=== PATIENT | female | born 1945 | race Caucasian/White ===

== ENCOUNTER 2020-05-07 08:26 | Emergency (ER) | payer MEDICARE, SELFPAY ==
[2020-05-07 08:57] VITALS: BP 151/83; PULSE 79; RESP 22; TEMP 36.8; O2SAT 98
--- NOTE | 2020-05-07 08:59 | ED_ITS ---
HPI - Female Genitourinary General Chief complaint: Urogenital-Female Stated complaint: right flank pain/gross hematuria x6 months Time Seen by Provider: 05/07/20 08:45 Source: patient Mode of arrival: Ambulatory Limitations: no limitations History of Present Illness HPI Narrative: This is a 74-year-old female comes emergency department with complaint of right flank pain that has been going on for 6 months. Patient has not had fevers or chills. She had some nausea she did not have any vomiting. Patient states pain is on the right side/flank area. It does not radiate to the front. She has had it for several months but worse over the last day or so. She has had an ultrasound at [facility] which showed a 7 mm stone on the right. She is unsure if there is any hydronephrosis. Patient states that today about 4:00 a.m. she noticed paxton blood in her urine. And that there were clots in her urine as well. She has had some constipation but is having hard bowel movements, she did not appreciate any blood or melena in her stool. She has rheumatoid arthritis, she takes a diuretic/hypertensive medication, she does not think she takes any blood thinners. Patient has had 2 back surgeries, hysterectomy. She had a myelogram recently to evaluate her back but she had complication and states that she is having significant pain and difficulty with ambulation and is being followed for this. Related Data Previous Rx's Medication Instructions Recorded cephalexin 500 mg PO TID 14 Days #42 cap 05/07/20 phenazopyridine [Pyridium] 100 mg PO TID PRN #7 tab 05/07/20 Allergies Allergy/AdvReac Type Severity Reaction Status Date / Time ibuprofen AdvReac Gastrointestinal Verified 05/07/20 09:50 Upset Review of Systems Review of Systems ROS Unobtainable: All systems reviewed & are unremarkable except as noted in HPI and below Exam Narrative Exam Narrative: GENERAL: Alert and oriented x three, well-nourished elderly appearing female in mild to moderate distress. HEENT: Head normocephalic, atraumatic, EOMI, pupils reactive, face symmetric, moist mucous membranes NECK: Supple, full range of motion CARDIOVASCULAR: Regular rate and rhythm without murmurs, rubs or gallops. RESPIRATORY: Breath sounds equal bilaterally, no wheezes rales or rhonchi. ABDOMEN: Soft, nontender. Normoactive bowel sounds all 4 quadrants. No gu arding or rebound, rigidity, no mass : Mild right CVA tenderness EXTREMITIES: Normal range of motion, no clubbing or edema. Neurovascularly intact NEUROLOGICAL: Cranial nerves II through XII grossly intact. Moving all extremities SKIN: Warm, dry, no petechiae, no rashes or lesions. Initial Vital Signs Initial Vital Signs: Vital Signs Temperature 98.2 F 05/07/20 08:57 Pulse Rate 79 05/07/20 08:57 Respiratory Rate 22 05/07/20 08:57 Blood Pressure 151/83 H 05/07/20 08:57 Pulse Oximetry 98 05/07/20 08:57 Course Orders Ordered: Discontinued Medications Sodium Chloride (Normal Saline 0.9%) 1,000 mls @ 150 mls/hr IV CONT MILADIS Sodium Chloride (Normal Saline 0.9%) 1,000 mls @ 1,000 mls/hr IV BOLUS ONE Stop: 05/07/20 10:25 Last Infusion: 05/07/20 10:39 Dose: 0 mls/hr Documented by: Admin: 05/07/20 09:48 Dose: 1,000 mls/hr Documented by: JUAREZ Ceftriaxone Sodium/Dextrose (Rocephin) 1 gm in 50 mls @ 100 mls/hr IV NOW ONE Stop: 05/07/20 10:13 Last Infusion: 05/07/20 10:39 Dose: 0 mls/hr Documented by: Admin: 05/07/20 09:53 Dose: 100 mls/hr Documented by: JUAREZ Phenazopyridine HCl (Phenazopyridine 100 Mg Tablet) 200 mg PO NOW ONE Stop: 05/07/20 09:26 Last Admin: 05/07/20 09:48 Dose: 200 mg Documented by: JUAREZ Potassium Chloride (Potassium Chloride 20 Meq/15 Ml Udc) 40 meq PO NOW ONE Stop: 05/07/20 09:27 Last Admin: 05/07/20 09:47 Dose: 40 meq Documented by: JUAREZ Potassium Chloride (Potassium Chloride 20 Meq Tab) 40 meq PO NOW ONE Stop: 05/07/20 10:10 Last Admin: 05/07/20 10:40 Dose: 40 meq Documented by: MARTA Vital Signs Vital signs: Vital Signs - 8 hr 05/07/20 11:07 12/07/20 11:09 05/07/20 11:33 Temperature 98.7 F Pulse Rate 76 74 65 Respiratory Rate 15 20 Blood Pressure 147/65 H 146/76 H Pulse Oximetry 93 93 96 MDM - Female Genitourinary Lab Data Attestation: I reviewed the patient's lab results. Result diagrams: 05/07/20 08:55 05/07/20 08:55 Labs: Lab Results 05/07/20 05/07/20 05/07/20 Range/Units 08:55 08:55 08:55 WBC 14.3 H (4.5-11.0) X10^3/uL RBC 4.87 (4.0-5.2) X10^6/uL Hgb 15.5 (12.0-16.0) g/dL Hct 46.2 H (36-46) % MCV 95.0 (80-100) fL MCH 31.8 (26-34) PG MCHC 33.5 (30-36) % RDW 13.6 (11.6-14.8) % Plt Count 317 (150-400) X10^3/uL Neut % (Auto) 76.1 H (50-75) % Lymph % (Auto) 17.2 L (25-40) % Perkins % (Auto) 4.7 (3-14) % Eos % (Auto) 1.3 L (2-4) % Baso % (Auto) 0.7 (0-2) % Neut # (Auto) 65866 H (0420-9040) /uL Lymph # (Auto) 2500 (6611-1564) /uL Perkins # (Auto) 700 (0-900) /uL Eos # (Auto) 200 (0-450) /uL Baso # (Auto) 100 (0-100) /uL Sodium 127 L (137-145) mmol/L Potassium 3.0 L (3.4-5.1) mmol/L Chloride 88 L (98-107) mmol/L Carbon Dioxide 37 H (22-32) mmol/L BUN 14 (7-17) mg/dL Creatinine 1.00 (0.52-1.04) mg/dL Estimated GFR 53.9 L (>60) mL/min BUN/Creatinine Ratio 14.0 (6-22) Glucose 89 (80-110) mg/dL Calcium 9.5 (8.4-10.2) mg/dL Total Bilirubin 0.9 (0.2-1.3) mg/dL AST 29 (14-36) IU/L ALT 27 (<35) IU/L Alkaline Phosphatase 68 (38-126) U/L Total Protein 7.2 (6.3-8.2) g/dL Albumin 4.2 (3.5-5.0) g/dL Globulin 3.0 (1.7-4.1) g/dL Albumin/Globulin Ratio 1.4 (1.0-2.8) Lipase 93 (23-300) U/L Procalcitonin < 0.05 (<0.5) ng/mL Urine Color Urine Appearance Urine pH (4.5-8.0) Ur Specific [place] (1.000-1.035) Urine Protein (Negative) Urine Glucose (UA) (Negative) g/dL Urine Ketones (NEGATIVE) Urine Occult Blood (Negative) Urine Nitrate (Negative) Urine Bilirubin (NEGATIVE) Urine Urobilinogen (0.2) E.U./dL Ur Leukocyte Esterase (NEGATIVE) Urine RBC (0-5/HPF) Urine WBC (0-5/HPF) Ur Squamous Epith Cells (0-5/HPF) Urine Bacteria (None) Ur Culture Indicated? 05/07/20 Range/Units 09:00 WBC (4.5-11.0) X10^3/uL RBC (4.0-5.2) X10^6/uL Hgb (12.0-16.0) g/dL Hct (36-46) % MCV (80-100) fL MCH (26-34) PG MCHC (30-36) % RDW (11.6-14.8) % Plt Count (150-400) X10^3/uL Neut % (Auto) (50-75) % Lymph % (Auto) (25-40) % Perkins % (Auto) (3-14) % Eos % (Auto) (2-4) % Baso % (Auto) (0-2) % Neut # (Auto) (4067-7374) /uL Lymph # (Auto) (0463-2558) /uL Perkins # (Auto) (0-900) /uL Eos # (Auto) (0-450) /uL Baso # (Auto) (0-100) /uL Sodium (137-145) mmol/L Potassium (3.4-5.1) mmol/L Chloride (98-107) mmol/L Carbon Dioxide (22-32) mmol/L BUN (7-17) mg/dL Creatinine (0.52-1.04) mg/dL Estimated GFR (>60) mL/min BUN/Creatinine Ratio (6-22) Glucose (80-110) mg/dL Calcium (8.4-10.2) mg/dL Total Bilirubin (0.2-1.3) mg/dL AST (14-36) IU/L ALT (<35) IU/L Alkaline Phosphatase (38-126) U/L Total Protein (6.3-8.2) g/dL Albumin (3.5-5.0) g/dL Globulin (1.7-4.1) g/dL Albumin/Globulin Ratio (1.0-2.8) Lipase (23-300) U/L Procalcitonin (<0.5) ng/mL Urine Color Red Urine Appearance Turbid Urine pH 7.5 (4.5-8.0) Ur Specific [place] 1.015 (1.000-1.035) Urine Protein 3+ H (Negative) Urine Glucose (UA) Negative (Negative) g/dL Urine Ketones Negative (NEGATIVE) Urine Occult Blood 3+ H (Negative) Urine Nitrate Negative (Negative) Urine Bilirubin Negative (NEGATIVE) Urine Urobilinogen Normal (0.2) E.U./dL Ur Leukocyte Esterase 3+ H (NEGATIVE) Urine RBC >100/hpf H (0-5/HPF) Urine WBC >100/hpf H (0-5/HPF) Ur Squamous Epith Cells 0-1 /hpf (0-5/HPF) Urine Bacteria Few (2-10) H (None) Ur Culture Indicated? Specimen cultured Imaging Data CT scan - abdomen/pelvis: Radiologist's Impression: [address] [id number] Scan ReportSigned Patient: Liseth Lynn GMR#: [id number]: 4Acct:[id number]/Sex: 74 / FDate of Service: 05/07/20Loc: EDAc cession Number: [id number] Procedure: CT kidney ureter bladder (KUB) Ordering Provider: Dee Dee Frank D.O. PROCEDURE: CT KIDNEY URETER BLADDER (KUB) INDICATIONS: right flank pain, hx kidney stone, gross hematuria TECHNIQUE: Noncontrast 5 mm thick sections acquired from the diaphragms to the symphysis. 5 mm thick coronal and sagittal reformats were then performed. For radiation dose reduction, the following was used: automated exposure control, adjustment of mA and/or kV according to patient size. COMPARISON: None. FINDINGS: Image quality: Excellent. Lung bases: Scarring/atelectasis in anterior medial aspect of lingular segment is seen. Heart size is enlarged, no pericardial effusion. Pacemaker leads are noted. Urinary system: Both kidneys are normal in size. No kidney stones. No hydronephrosis or perinephric fat stranding. Bilateral renal cortical cysts are seen measures up to 3.1 centimeter in size in posterior cortex of midpole right kidney and up to 3.7 centimeters in size in lower pole of left kidney. Bilateral extrarenal pelvises are also noted. Both ureters appear non-dilated throughout their expected courses. There is mild diffuse bladder wall thickening, no discrete bladder wall mass. No calcified bladder stones. Other solid organs: Liver is normal in size. Gallbladder is within normal limits. Pancreas is normal in contours. Spleen is normal in size. No adrenal nodules. Peritoneum and bowel: Unenhanced bowel loops demonstrate normal wall thickness and caliber. No free fluid or air. Appendix is visualized and is within normal limits. Mild fecal stasis in the colon is seen. Nodes and vessels: No retroperitoneal or mesenteric adenopathy by size criteria. Aorta and inferior vena cava are normal in caliber. Abdominal wall: No ventral hernias. Pelvis: No free pelvic fluid. No inguinal hernias or adenopathy. Bones: No suspicious bony lesions. Degenerative endplate changes throughout visualized lower thoracic spine and lumbar spine is seen. Grade 1 anterolisthesis of L4 on L5 is also noted. No vertebral body compression fractures. IMPRESSION: 1. No renal stone or ureteral stone. No hydronephrosis. Bilateral renal cysts as above. 2. Mild diffuse bladder wall thickening without discrete bladder wall mass or calcified bladder stones. Infectious inflammatory cystitis cannot be excluded. 3. No bowel obstruction. No abnormal bowel wall thickening. Normal appendix. Dictated by: Alverto Guerra M.D. on 05/07/2020 at 8:20 Approved by: Alverto Guerra M.D. on 05/07/2020 at 8:25 [facility] Narrative Medical decision making narrative: 74-year-old female who comes in with complaint of right flank pain and gross hematuria. Patient states flank pain started approximately 6 months ago, she states she has had a ultrasound which showed a 7 mm kidney stone and she tried to contact Dr. Turpin urologist but has been unsuccessful. Patient's labs show a leukocytosis with left shift, hyponatremia, hypokalemia with elevated CO2 and normal renal function. Normal LFTs, bilirubin and lipase with a negative procalcitonin. Urinalysis does show leukocyte esterase with greater than [address] imaging does not show any nephrolithiasis she does have mild thickening of the bladder wall consistent w ith possibly infection but discussed with patient that she may need cystoscopy as there are other causes besides infection if she continues to have hematuria. We discussed patient plans to have repeat labs checked for her potassium and sodium, she did have her potassium replaced orally here in the department which she tolerated. We also discussed she has bilateral renal cysts. Patient found some improvement with pyridium and was given a prescription. Discharge Plan Departure Patient Disposition: Home Clinical Impression: Hematuria, Pyelonephritis Instructions: DI for Kidney Infection Activity Restrictions/Additional Instructions: Follow-up with Dr. Turpin for re-evaluation and possible cystoscopy as you have thickening of your bladder wall, you also have bilateral kidney cysts which were noted on a your imaging today. Take antibiotics until they are completely gone. You also need to follow-up with your primary care physician in the next 24-48 hours for recheck of your sodium and potassium which are both low. Your potassium was replaced here in the department but if these continue to drop you would need to return. If you cannot get these checked as an outpatient return to the ER for recheck. Return to the ER for fevers, worsening abdominal flank pain, lightheadedness passing out, persistent vomiting, increasing for large amounts of bleeding, inability to urinate or other new or concerning symptoms. Prescriptions: New cephalexin 500 mg capsule 500 mg PO TID 14 Days Qty: 42 RF: 0 phenazopyridine [Pyridium] 100 mg tablet 100 mg PO TID PRN (Reason: pain) Qty: 7 RF: 0 Referrals: Jin Abdi MD [Primary Care Provider] -
--- NOTE | 2020-05-07 09:02 | DI.CT.S_ITS ---
PROCEDURE: CT KIDNEY URETER BLADDER (KUB) INDICATIONS: right flank pain, hx kidney stone, gross hematuria TECHNIQUE: Noncontrast 5 mm thick sections acquired from the diaphragms to the symphysis. 5 mm thick coronal and sagittal reformats were then performed. For radiation dose reduction, the following was used: automated exposure control, adjustment of mA and/or kV according to patient size. COMPARISON: None. FINDINGS: Image quality: Excellent. Lung bases: Scarring/atelectasis in anterior medial aspect of lingular segment is seen. Heart size is enlarged, no pericardial effusion. Pacemaker leads are noted. Urinary system: Both kidneys are normal in size. No kidney stones. No hydronephrosis or perinephric fat stranding. Bilateral renal cortical cysts are seen measures up to 3.1 centimeter in size in posterior cortex of midpole right kidney and up to 3.7 centimeters in size in lower pole of left kidney. Bilateral extrarenal pelvises are also noted. Both ureters appear non-dilated throughout their expected courses. There is mild diffuse bladder wall thickening, no discrete bladder wall mass. No calcified bladder stones. Other solid organs: Liver is normal in size. Gallbladder is within normal limits. Pancreas is normal in contours. Spleen is normal in size. No adrenal nodules. Peritoneum and bowel: Unenhanced bowel loops demonstrate normal wall thickness and caliber. No free fluid or air. Appendix is visualized and is within normal limits. Mild fecal stasis in the colon is seen. Nodes and vessels: No retroperitoneal or mesenteric adenopathy by size criteria. Aorta and inferior vena cava are normal in caliber. Abdominal wall: No ventral hernias. Pelvis: No free pelvic fluid. No inguinal hernias or adenopathy. Bones: No suspicious bony lesions. Degenerative endplate changes throughout visualized lower thoracic spine and lumbar spine is seen. Grade 1 anterolisthesis of L4 on L5 is also noted. No vertebral body compression fractures. IMPRESSION: 1. No renal stone or ureteral stone. No hydronephrosis. Bilateral renal cysts as above. 2. Mild diffuse bladder wall thickening without discrete bladder wall mass or calcified bladder stones. Infectious inflammatory cystitis cannot be excluded. 3. No bowel obstruction. No abnormal bowel wall thickening. Normal appendix. Dictated by: Alverto Guerra M.D. on 05/07/2020 at 8:20 Approved by: Alverto Guerra M.D. on 05/07/2020 at 8:25
[2020-05-07 09:07] LABS: Add Manual Diff / Slide Review NO; Basophils Absolute Auto 100 /uL (0-100); Basophils Percent Auto 0.7 % (0-2); Eosinophils Absolute Auto 200 /uL (0-450); Eosinophils Percent Auto 1.3 % (2-4); Hematocrit 46.2 % (36-46); Hemoglobin 15.5 g/dL (12.0-16.0); Lymphocytes Absolute Auto 2500 /uL (1100-4500); Lymphocytes Percent Auto 17.2 % (25-40); Mean Corpuscular HGB Conc 33.5 % (30-36); Mean Corpuscular Hemoglobin 31.8 PG (26-34); Monocytes Absolute Auto 700 /uL (0-900); Monocytes Percent Auto 4.7 % (3-14); Neutrophils Absolute Auto 10900 /uL (1500-7000); Neutrophils Percent Auto 76.1 % (50-75); Platelet Count 317 X10^3/uL (150-400); Red Blood Cell Count 4.87 X10^6/uL (4.0-5.2); Red Cell Distribution Width 13.6 % (11.6-14.8); White Blood Cell Count 14.3 X10^3/uL (4.5-11.0)
[2020-05-07 09:12] LABS: Alanine Aminotransferase 27 IU/L (<35); Albumin 4.2 g/dL (3.5-5.0); Albumin Globulin Ratio 1.4 (1.0-2.8); Alkaline Phosphatase 68 U/L (38-126); Aspartate Aminotransferase 29 IU/L (14-36); Bilirubin Total 0.9 mg/dL (0.2-1.3); Blood Urea Nitrogen 14 mg/dL (7-17); Calcium 9.5 mg/dL (8.4-10.2); Carbon Dioxide 37 mmol/L (22-32); Chloride 88 mmol/L (98-107); Estimated Glomerular Filt Rate 53.9 mL/min (>60); Glucose 89 mg/dL (80-110); HEMOLYSIS < 15 (0-50); Lipase 93 U/L (23-300); Sodium 127 mmol/L (137-145); Total Protein 7.2 g/dL (6.3-8.2)
[2020-05-07 09:28] LABS: Procalcitonin < 0.05 ng/mL (<0.5)
[2020-05-07 09:30] LABS: Appearance Urine UA TURBID; Color Urine UA RED; Leukocyte Esterase Urine UA 3+ (NEGATIVE); Occult Blood Urine UA 3+ (Negative); Protein Urine UA 3+ (Negative)
[2020-05-07 09:40] LABS: Bilirubin Urine UA Negative (NEGATIVE); Glucose Urine UA NEGATIVE (Negative); Ketones Urine UA NEGATIVE (NEGATIVE); Nitrite Urine UA NEGATIVE (Negative); Specific Gravity Urine UA 1.015 (1.000-1.035); Urobilinogen Urine UA Normal E.U./dL (0.2); pH Urine UA 7.5 (4.5-8.0)
[2020-05-07] MEDS: POTASSIUM CHLORIDE 20 MEQ/15 ML UDC 40 MEQ PO (09:47)
[2020-05-07 09:48] LABS: Bacteria Urine Few (2-10); Culture Indicated Urine Specimen Cultured; RBC Urine >100/HPF (0-5/HPF); Squamous Epithelial Cell Urine 0-1 /HPF (0-5/HPF); WBC Urine >100/HPF (0-5/HPF)
[2020-05-07] MEDS: PHENAZOPYRIDINE 100 MG TABLET 200 MG PO (09:48)
[2020-05-07] MEDS: SODIUM CHLORIDE 0.9% 1,000 ML 1000 ML IV (09:48)
[2020-05-07] MEDS: CEFTRIAXONE 1 GM/50 ML FROZ.PIGGY IV (09:53)
--- NOTE | 2020-05-07 10:09 | PC.NURSE ---
Pt states she will not take potassium as a drink because it tastes too bad and I will through up every where MD notified and po ordered.
[2020-05-07 10:31] VITALS: PULSE 66; RESP 16; O2SAT 97
[2020-05-07] MEDS: POTASSIUM CHLORIDE 20 MEQ TAB 40 MEQ PO (10:40)
[2020-05-07 11:07] VITALS: PULSE 76; O2SAT 93
[2020-05-07 11:09] VITALS: BP 147/65; PULSE 74; RESP 15; O2SAT 93
[2020-05-07 11:33] VITALS: BP 146/76; PULSE 65; RESP 20; TEMP 37.1; O2SAT 96
== END 2020-05-07 11:33 | disposition home or self-care (01) ==
PROVIDERS: Emergency Provider Emergency Medicine; PCP Internal Medicine
DX: N12 Tubulo-interstitial nephritis, not specified as acute or chronic (principal); R31.0 Gross hematuria; R11.0 Nausea; K59.00 Constipation, unspecified; Z87.442 Personal history of urinary calculi; E87.1 Hypo-osmolality and hyponatremia; E87.6 Hypokalemia; D72.829 Elevated white blood cell count, unspecified
CPT/HCPCS: 74176; 80053; 81001; 83690; 84145; 85025; 87077; 87086; 87186; 96365; 99283; 99284

== ENCOUNTER → 2020-05-09 12:38 | Outpatient (CLI) | payer MEDICARE, SELFPAY ==
--- NOTE | 2020-05-09 12:39 | DI.RAD.S_ITS ---
PROCEDURE: XR LUMBAR SPINE MIN 4V INDICATIONS: UPDATE IMAGING TECHNIQUE: 5 views of the lumbar spine were acquired. COMPARISON: [facility], CT, CT LUMBAR SPINE WITHOUT CONTRAST, 02/22/2020, 7:49. FINDINGS: Bones: There are 5 [id number] lumbar vertebral bodies. As before, there is anterior wedging at T12 and L1. Severe degenerative changes are redemonstrated at the thoracolumbar junction including intervertebral disc space narrowing, vacuum disc phenomenon, osteophytosis, and endplate sclerosis. No new compression deformities. There is grade 1 L4 on L5 anterolisthesis, unchanged from the study dated February 22, 2020. Soft tissues: Overlying bowel gas pattern is normal. No suspicious soft tissue calcifications. Oblique images: No pars defects. IMPRESSION: 1. Stable degenerative change, severe at the thoracolumbar junction. 2. L4-5 anterolisthesis without spondylolysis. Dictated by: Eleanor Pineda M.D. on 05/09/2020 at 14:25 Approved by: Eleanor Pineda M.D. on 05/09/2020 at 14:27
== END ==
PROVIDERS: PCP Internal Medicine; Referring Provider Physical Medicine & Rehabilitation; Visit Provider Physical Medicine & Rehabilitation
DX: M54.9 Dorsalgia, unspecified (principal); M47.815 Spondylosis without myelopathy or radiculopathy, thoracolumbar region; M43.16 Spondylolisthesis, lumbar region; M48.00 Spinal stenosis, site unspecified; G03.9 Meningitis, unspecified; Z95.0 Presence of cardiac pacemaker
CPT/HCPCS: 72110; 99214

== ENCOUNTER → 2020-05-15 08:39 | Outpatient (CLI) | payer MEDICARE, SELFPAY ==
--- NOTE | 2020-05-15 | DI.RAD.S_ITS ---
PROCEDURE: XR HIP W PEL IF DONE RT 2V INDICATIONS: Pain in right hip TECHNIQUE: AP pelvis with lateral view(s) of the right hip(s). COMPARISON: [facility], CT, CT KIDNEY URETER BLADDER (KUB), 05/07/2020, 9:03. FINDINGS: Bones: No fractures or dislocations. Mild joint space narrowing of the right hip. Moderate joint space narrowing of the left hip with acetabular roof sclerosis. Pelvic ring appears intact. No suspicious bony lesions. Soft tissues: The visualized bowel gas pattern is normal. No suspicious soft tissue calcifications. IMPRESSION: 1. Mild right hip DJD. 2. Moderate left hip DJD. Dictated by: Dennis Riggs M.D. on 05/15/2020 at 8:03 Approved by: Dennis Riggs M.D. on 05/15/2020 at 8:05
== END ==
PROVIDERS: PCP Internal Medicine; Referring Provider Internal Medicine; Visit Provider Internal Medicine
DX: M25.551 Pain in right hip (principal); M16.0 Bilateral primary osteoarthritis of hip
CPT/HCPCS: 73502

== ENCOUNTER → 2020-07-18 09:38 | Outpatient (CLI) | payer MEDICARE, SELFPAY ==
--- NOTE | 2020-07-18 | DI.CT.S_ITS ---
PROCEDURE: CT ABDOMEN PELVIS WO/W CON INDICATIONS: Personal history of other diseases of urinary system TECHNIQUE: Optional 5 mm thick noncontrast images acquired from the diaphragm to the symphysis pubis. After the administration of intravenous contrast, 5 mm thick images acquired from the diaphragm to the symphysis pubis after a 10-minute delay. 2 mm thick coronal and sagittal reformats were then performed of the kidneys and ureters. For radiation dose reduction, the following was used: automated exposure control, adjustment of mA and/or kV according to patient size. COMPARISON: [facility], CT, CT KIDNEY URETER BLADDER (KUB), 05/07/2020, 9:03. FINDINGS: Image quality: Excellent. Lung bases: Lung bases are clear. Heart size is normal. Pacemaker leads in the heart. Urinary system: Both kidneys are normal in size, without hydronephrosis or nephrolithiasis on pre-contrast images. There are cysts arising from each kidney. No perinephric fat stranding. There is normal bilateral renal enhancement. Renal calyces appear normal in morphology when filled with contrast. Opacified portions of both ureters demonstrate normal caliber. Bladder wall thickness is normal. There is a trace amount of air anteriorly in the urinary bladder of uncertain etiology. No calcified bladder stones. Other solid organs: Liver is normal in size and enhancement. Gallbladder is partially contracted . Biliary system is non dilated. Pancreas enhances normally. Spleen is normal in size and enhancement. No adrenal nodules. Peritoneum and bowel: Bowel loops demonstrate normal wall thickness and caliber. No free fluid or air. Normal appendix. Occasional colonic diverticula. Nodes and vessels: No retroperitoneal or mesenteric adenopathy by size criteria. Aorta and inferior vena cava are normal in size. Abdominal wall: No ventral hernias. Pelvis: No pathologic free pelvic fluid. There is a nonobstructed herniation of the right urinary bladder wall into the right obturator internus musculature at the pelvic floor. The uterus is absent. Bones: No suspicious bony lesions. Multilevel degenerative disc and endplate changes throughout the thoracolumbar spine. Grade 1 anterolisthesis L4 on five and chronic appearing vertebral body height loss in the lower thoracic and upper lumbar spine with endplate spurs. No acute appearing vertebral body compression fractures. IMPRESSION: 1. No evidence of urinary calculi or urinary obstruction. 2. Nonobstructed urinary bladder wall hernia. 3. Interval resolution of urinary bladder wall thickening, but now with trace intraluminal gas of uncertain etiology. Question recent instrumentation or gas-forming organism. Dictated by: Clare Monreal M.D. on 07/18/2020 at 10:16 Approved by: Clare Monreal M.D. on 07/18/2020 at 10:30
== END ==
PROVIDERS: Referring Provider Urology; Visit Provider Urology
DX: N32.89 Other specified disorders of bladder (principal); Z87.448 Personal history of other diseases of urinary system
CPT/HCPCS: 74178; Q9967

== ENCOUNTER 2020-08-21 18:42 | Emergency (ER) | payer MEDICARE, SELFPAY ==
[2020-08-21 18:45] VITALS: BP 135/67; PULSE 108; RESP 26; TEMP 36.4; O2SAT 96; BMI 29.9
[2020-08-21 19:25] LABS: Add Manual Diff / Slide Review NO; Basophils Absolute Auto 100 /uL (0-100); Eosinophils Absolute Auto 200 /uL (0-450); Eosinophils Percent Auto 1.3 % (2-4); Hematocrit 48.2 % (36-46); Hemoglobin 16.3 g/dL (12.0-16.0); INR 1.2 (0.9-1.3); Lymphocytes Absolute Auto 2400 /uL (1100-4500); Lymphocytes Percent Auto 18.7 % (25-40); Mean Corpuscular HGB Conc 33.9 % (30-36); Mean Corpuscular Hemoglobin 31.6 PG (26-34); Mean Corpuscular Volume 93.2 fL (80-100); Monocytes Absolute Auto 900 /uL (0-900); Monocytes Percent Auto 7.5 % (3-14); Neutrophils Absolute Auto 9100 /uL (1500-7000); Neutrophils Percent Auto 71.5 % (50-75); Platelet Count 421 X10^3/uL (150-400); Red Blood Cell Count 5.17 X10^6/uL (4.0-5.2); Red Cell Distribution Width 12.9 % (11.6-14.8); White Blood Cell Count 12.7 X10^3/uL (4.5-11.0)
[2020-08-21 19:27] LABS: PTT Partial Thromboplastin Tim 40 SECONDS (26.4-36.2)
[2020-08-21 19:29] LABS: Alanine Aminotransferase 21 IU/L (<35); Albumin 4.5 g/dL (3.5-5.0); Albumin Globulin Ratio 1.4 (1.0-2.8); Alkaline Phosphatase 96 U/L (38-126); Aspartate Aminotransferase 32 IU/L (14-36); BUN Creatinine Ratio 18.9 (6-22); Bilirubin Total 0.6 mg/dL (0.2-1.3); Blood Urea Nitrogen 20 mg/dL (7-17); Calcium 10.4 mg/dL (8.4-10.2); Carbon Dioxide 32 mmol/L (22-32); Chloride 94 mmol/L (98-107); Estimated Glomerular Filt Rate 50.4 mL/min (>60); Globulin 3.3 g/dL (1.7-4.1); Glucose 194 mg/dL (80-110); HEMOLYSIS < 15 (0-50); Lipase 198 U/L (23-300); Potassium 3.1 mmol/L (3.4-5.1); Sodium 138 mmol/L (137-145); Total Protein 7.8 g/dL (6.3-8.2)
--- NOTE | 2020-08-21 19:56 | ED_ITS ---
HPI - General Adult General Chief complaint: Abdominal Pain Stated complaint: EVERYTHING HURTS HARD TIME BREATHING Time Seen by Provider: 08/21/20 19:49 Source: patient Mode of arrival: Wheelchair Limitations: no limitations History of Present Illness HPI narrative: Patient is a 74-year-old female here for evaluation of multiple symptoms. She states that a couple weeks ago she fell and hit her right side and has had continued pain since then. States that it does hurt when she takes a deep breath. She was also complaining of generalized abdominal pain. Also complaining of constipation. She has taken her home opioids without any improvement. She also took 3 doses of a laxative without any improvement. D enies any urinary symptoms although is currently on Keflex for a urinary tract infection. She denies any continued urinary symptoms. Related Data Home Medications Medication Instructions Recorded Confirmed acetaminophen 500 mg tablet 1,000 mg PO Q6H PRN 05/09/20 07/24/20 ascorbic acid (vitamin C) 500 mg mg PO 05/09/20 07/24/20 capsule cholecalciferol (vitamin D3) 50 50 mcg PO DAILY 05/09/20 07/24/20 mcg (2,000 unit) capsule cyclobenzaprine 10 mg tablet 10 mg PO BEDTIME 05/09/20 07/24/20 estradiol 0.5 mg tablet 0.5 mg PO DAILY 05/09/20 07/24/20 hydrochlorothiazide 25 mg tablet 25 mg PO DAILY 05/09/20 07/24/20 levothyroxine 125 mcg tablet 125 mcg PO DAILY 05/09/20 07/24/20 lorazepam 1 mg tablet 1 mg PO DAILY PRN 05/09/20 07/24/20 multivitamin with minerals 1 tab PO DAILY 05/09/20 07/24/20 nitroglycerin 0.4 mg sublingual 0.4 mg SUBLINGUAL Q5M PRN 05/09/20 07/24/20 tablet omeprazole 40 mg capsule,delayed 40 mg PO DAILY 05/09/20 07/24/20 release oxycodone 5 mg capsule 5 mg PO BID PRN 05/09/20 07/24/20 phenazopyridine 100 mg tablet 100 mg PO TID PRN 05/09/20 07/24/20 potassium chloride 10 mEq 10 meq PO DAILY 05/09/20 07/24/20 tablet,extended release(part/cryst) prasterone (dhea) 50 mg capsule 50 mg PO DAILY 05/09/20 07/24/20 vitamin E 200 unit capsule 200 unit PO DAILY 05/09/20 07/24/20 zolpidem 5 mg tablet 5 mg PO BEDTIME PRN 05/09/20 07/24/20 prednisone 1 mg tablet 1 mg PO DAILY 07/20/20 07/24/20 Previous Rx's Medication Instructions Recorded gabapentin 300 mg capsule 300 mg PO .COMPLEX #90 cap 05/09/20 estradiol 1 g VAGINAL 2XW #42.5 g 07/25/20 cephalexin 250 mg capsule 250 mg PO TID #21 cap 08/09/20 Allergies Allergy/AdvReac Type Severity Reaction Status Date / Time venom-honey bee Allergy Severe Anaphylaxis Verified 07/20/20 08:57 hydrocodone Allergy Intermediate RASH Verified 05/09/20 07:22 pregabalin Allergy Intermediate SOB Verified 05/09/20 07:22 acetaminophen [From Percocet] Allergy Verified 07/20/20 08:57 duloxetine [From Cymbalta] Allergy Verified 07/20/20 08:57 oxycodone [From Percocet] Allergy Verified 07/20/20 08:57 ibuprofen AdvReac Gastrointestinal Verified 07/20/20 08:57 Upset Review of Systems Constitutional Constitutional: Denies fever(s) Cardiovascular Cardiovascular: Reports chest pain (Right-sided chest wall pain) and Reports dyspnea Respiratory Respiratory: Reports pain on inspiration and Reports dyspnea Gastrointestinal Gastrointestinal: Reports abdominal pain, Denies change in bowel habits, Denies nausea and Denies vomiting Genitourinary Genitourinary: Denies dysuria Genitourinary: Denies dysuria Musculoskeletal Musculoskeletal: Reports back pain, Reports myalgias and Reports myalgias Integumentary/Breasts Skin/Breast: Denies rash Neurologic Neurologic: Denies behavioral changes Psychiatric Psychiatric: Denies behavioral changes Hematologic/Lymphatic On Anticoagulants: No Allergic/Immunologic Allergic/Immunologic: Denies urticaria Patient History Medical History Adhesive arachnoiditis Gross hematuria History of UTI Lower urinary tract symptoms (LUTS) Multilevel spinal stenosis Pacemaker Postmenopausal atrophic vaginitis Spondylolisthesis at L4-L5 level Surgical History H/O: hysterectomy History of nasal surgery History of permanent cardiac pacemaker placement Hx of tonsillectomy Family History Father Diabetes mellitus Hypertension Mother Cancer Active rheumatic fever Thyroid disorder UTI (urinary tract infection) Diabetes mellitus Sister Arthritis, rheumatoid Thyroid disorder UTI (urinary tract infection) Daughter Eczema Family/Other Diabetes mellitus Cancer Thyroid disorder Family/Other Cancer Other No pertinent family history Social History marital status: number of children: 3 occupational status: disabled Smoking Status: Former smoker Tobacco: How many years used: 20 alcohol intake: never caffeine: Yes Smoking Status: Former smoker alcohol intake frequency: 0-2 drinks per day Substance Use Type: does not use Exam Initial Vital Signs Initial Vital Signs: Vital Signs Temperature 97.5 F L 08/21/20 18:45 Pulse Rate 108 H 08/21/20 18:45 Respiratory Rate 26 H 08/21/20 18:45 Blood Pressure 135/67 08/21/20 18:45 Pulse Oximetry 96 08/21/20 18:45 Const General: cooperative Limitations: mental status not altered HENMT Head: normal to inspection and normocephalic Chest Chest: tenderness (Right-sided lateral chest wall) Resp Effort & Inspection: normal respiratory effort Auscultation: clear to auscultation bilaterally Cardio Rate: regular rate Rhythm: regular rhythm GI Inspection: non-distended Palpation: soft and tender (Diffuse tenderness) Skin Lesions: no lesions Rashes: no rashes Neuro General: patient alert, patient awake and patient oriented x3 Cognition: normal cognition Speech: speech normal Extrem General: capillary refill normal Psych Appearance: grossly normal and well kempt Course Orders Ordered: ED Orders 08/21/20 19:07 Complete Blood Count AUTO DIFF Stat Comprehensive Metabolic Panel Stat Lipase Stat Partial Thromboplastin Time Stat Prothrombin Time INR Stat 08/21/20 19:10 EKG-12 Lead Stat 08/21/20 19:57 CT abdomen pelvis w con Stat XR ribs RT min 3V w CXR1V Stat Discontinued Medications Sodium Chloride (Normal Saline 0.9%) 1,000 mls @ 1,000 mls/hr IV BOLUS ONE Stop: 08/21/20 20:56 Last Infusion: 08/21/20 21:30 Dose: 0 mls/hr Documented by: Admin: 08/21/20 20:06 Dose: 1,000 mls/hr Documented by: STARR Vital Signs Vital signs: Vital Signs - 8 hr 08/21/20 18:45 08/21/20 20:30 08/21/20 21:00 Temperature 97.5 F L Pulse Rate 108 H 91 H 91 H Respiratory Rate 26 H Blood Pressure 135/67 123/104 H Pulse Oximetry 96 92 99 08/21/20 21:30 08/21/20 21:31 Temperature Pulse Rate 95 H 94 H Respiratory Rate Blood Pressure 152/92 H Pulse Oximetry 95 95 Medical Decision Making Lab Data Lab results reviewed: Yes I reviewed the patient's lab results. Result diagrams: 08/21/20 19:07 08/21/20 19:07 Labs: Lab Results 08/21/20 08/21/20 08/21/20 Range/Units 19:07 19:07 19:07 WBC 12.7 H (4.5-11.0) X10^3/uL RBC 5.17 (4.0-5.2) X10^6/uL Hgb 16.3 H (12.0-16.0) g/dL Hct 48.2 H (36-46) % MCV 93.2 (80-100) fL MCH 31.6 (26-34) PG MCHC 33.9 (30-36) % RDW 12.9 (11.6-14.8) % Plt Count 421 H (150-400) X10^3/uL Neut % (Auto) 71.5 (50-75) % Lymph % (Auto) 18.7 L (25-40) % [place] % (Auto) 7.5 (3-14) % Eos % (Auto) 1.3 L (2-4) % Baso % (Auto) 1.0 (0-2) % Neut # (Auto) 9100 H (3183-4644) /uL Lymph # (Auto) 2400 (2250-8178) /uL [place] # (Auto) 900 (0-900) /uL Eos # (Auto) 200 (0-450) /uL Baso # (Auto) 100 (0-100) /uL PT 13.0 H (10.1-12.7) SECONDS INR 1.2 (0.9-1.3) APTT 40 H (26.4-36.2) SECONDS Sodium 138 (137-145) mmol/L Potassium 3.1 L (3.4-5.1) mmol/L Chloride 94 L (98-107) mmol/L Carbon Dioxide 32 (22-32) mmol/L BUN 20 H (7-17) mg/dL Creatinine 1.06 H (0.52-1.04) mg/dL Estimated GFR 50.4 L (>60) mL/min BUN/Creatinine Ratio 18.9 (6-22) Glucose 194 H (80-110) mg/dL Calcium 10.4 H (8.4-10.2) mg/dL Total Bilirubin 0.6 (0.2-1.3) mg/dL AST 32 (14-36) IU/L ALT 21 (<35) IU/L Alkaline Phosphatase 96 (38-126) U/L Total Protein 7.8 (6.3-8.2) g/dL Albumin 4.5 (3.5-5.0) g/dL Globulin 3.3 (1.7-4.1) g/dL Albumin/Globulin Ratio 1.4 (1.0-2.8) Lipase 198 (23-300) U/L Imaging Data CT scan - abdomen/pelvis: Radiologist's Impression: [address] Scan ReportSigned Patient: Liseth Lynn GMR#: [id number]: 10/034Acct:[id number]/Sex: 74 / FDate of Service: 08/21/20Loc: EDAccession Number: [id number] Procedure: CT abdomen pelvis w con Ordering Provider: Danny Lara D.O. PROCEDURE: CT ABDOMEN PELVIS W CON INDICATIONS: abd pain with distension, concern for obstruction TECHNIQUE: After the administration of intravenous contrast, 5 mm thick sections acquired from the diaphragm to the symphysis. 5 mm coronal and sagittal reformats were acquired. For radiation dose reduction, the following was used: automated exposure control, adjustment of mA and/or kV according to patient size. Renal cysts. Stable bilateral FINDINGS: Image quality: Excellent. ABDOMEN: Lung bases: Lung bases are clear. Heart size is normal. Cardiac pacer leads partially visualized Solid organs: Liver is normal in size and enhancement. Gallbladder is within normal limits. Biliary system is non dilated. Pancreas enhances normally. Spleen is normal in size and enhancement. No adrenal nodules. Kidneys demonstrate normal size and enhancement, without hydronephrosis. Peritoneum and bowel: Bowel loops demonstrate normal wall thickness and caliber. No free fluid or air. Appendix is normal. Nodes and vessels: No retroperitoneal or mesenteric adenopathy by size criteria. Aorta and inferior vena cava are normal in size. Macro vasculature Miscellaneous: No ventral hernias. PELVIS: Genitourinary: Bladder wall thickness is normal. Right lower urinary bladder wall herniation is stable. Uterus is absent. Miscellaneous: No inguinal hernias or adenopathy. Bones: No suspicious bony lesions. No vertebral body compression fractures. Spine degenerative disc disease and facet arthropathy. IMPRESSION: 1. No free fluid or free air. 2. No dilated loops of bowel. 3. Appendix is normal. Dictated by: Meghana Hanley MD, PhD on 08/21/2020 at 20:20 Approved by: Meghana Hanley MD, PhD on 08/21/2020 at 20:24 Chest x-ray: Radiologist's Impression: [address] [id number] ReportSigned Patient: Liseth Lynn GMR#: [id number]: 4Acct:[id number]/Sex: 74 / FDate of Service: 08/21/20Loc: EDAccess ion Number: [id number] Procedure: XR ribs RT min 3V w CXR1V Ordering Provider: Danny Lara D.O. PROCEDURE: XR RIBS RT MIN 3V W CXR 1V INDICATIONS: fall right lower lateral rib pain TECHNIQUE: 2 views of the right were acquired, along with a single view chest. COMPARISON: [facility], , XR CHEST 1 VIEW, 04/12/2020, 15:24. FINDINGS: Surgical changes and devices: Left chest wall AICD is stable. Bones and chest wall: No fractures or dislocations. No suspicious bony lesions. Overlying soft tissues appear unremarkable. Lungs and pleura: No pleural effusions or pneumothorax. Lungs appear clear. Mediastinum: Mediastinal contours appear normal. Heart size is normal. IMPRESSION: No displaced rib fracture. No acute cardiopulmonary disease process. Dictated by: Meghana Hanley MD, PhD on 08/21/2020 at 20:30 Approved by: Meghana Hanley MD, PhD on 08/21/2020 at 20:31 [facility] Narrative Medical decision making narrative: Workup here in the emergency department relatively unremarkable. The x-ray shows no signs of rib fractures and her aranza gs are unremarkable. She is not tachypneic. She is not hypoxic. She does have a diffuse abdominal tenderness. Given her history of constipation CT scan was ordered which shows no signs of obstructions. Is also no signs of infectious etiology. She does have a leukocytosis but is also being treated with antibiotics for urinary tract infection. I have low suspicion for pyelonephritis. Had a long discussion with her regarding her symptoms. It appears that much of her pain symptoms are not new. Informed her that she needs to talk with her pain specialist and she states she has not been in to see them in some time. She does have an appointment tomorrow with a provider at her primary doctor's office but she has not seen this individual since then. She also has other specialist to include manpower development specialist manager. She is afebrile. I feel facing could be safely discharged home without further workup here in the ER. She is well set up with her special she does needs to follow up with them. She is given return precautions. She expressed understanding agreement. Discharge Plan Departure Patient Disposition: Home Clinical Impression: Fatigue Instructions: DI for Fatigue Activity Restrictions/Additional Instructions: Your workup here in the emergency department is reassuring. I recommend that you continue all of your medications as directed. I also recommend that you keep all of your scheduled medical appointments. You can return to the emergency department any point for new symptoms. Prescriptions: No Action prednisone 1 mg tablet 1 mg PO DAILY RF: 0 cephalexin 250 mg capsule 250 mg PO TID Qty: 21 RF: 0 acetaminophen [Tylenol Extra Strength] 500 mg tablet 1,000 mg PO Q6H PRNRF: 0 cholecalciferol (vitamin D3) 50 mcg (2,000 unit) capsule 50 mcg PO DAILY RF: 0 ascorbic acid (vitamin C) 500 mg capsule PO RF: 0 cyclobenzaprine 10 mg tablet 10 mg PO BEDTIME RF: 0 estradiol 0.5 mg tablet 0.5 mg PO DAILY RF: 0 hydrochlorothiazide 25 mg tablet 25 mg PO DAILY RF: 0 potassium chloride [Klor-Con M10] 10 mEq tablet,ER particles/crystals 10 meq PO DAILY RF: 0 levothyroxine 125 mcg tablet 125 mcg PO DAILY RF: 0 lorazepam 1 mg tablet 1 mg PO DAILY PRNRF: 0 multivitamin with minerals [Daily Multivitamin-Minerals] Tablet 1 tab PO DAILY RF: 0 nitroglycerin 0.4 mg tablet, sublingual 0.4 mg sublingual Q5M PRNRF: 0 omeprazole 40 mg capsule,delayed release(DR/EC) 40 mg PO DAILY RF: 0 oxycodone 5 mg capsule 5 mg PO BID PRNRF: 0 prasterone (dhea) 50 mg capsule 50 mg PO DAILY RF: 0 vitamin E 200 unit capsule 200 unit PO DAILY RF: 0 zolpidem 5 mg tablet 5 mg PO BEDTIME PRNRF: 0 phenazopyridine [Pyridium] 100 mg tablet 100 mg PO TID PRNRF: 0 gabapentin 300 mg capsule 300 mg PO .COMPLEX Qty: 90 RF: 2 estradiol [Estrace] 0.01 % (0.1 mg/gram) cream 1 g vaginal 2XW Qty: 42.5 RF: 5
[2020-08-21] MEDS: SODIUM CHLORIDE 0.9% 1,000 ML 1000 ML IV (20:06)
[2020-08-21 20:30] VITALS: BP 123/104; PULSE 91; O2SAT 92
[2020-08-21 21:00] VITALS: PULSE 91; O2SAT 99
[2020-08-21 21:30] VITALS: PULSE 95; O2SAT 95
[2020-08-21 21:31] VITALS: BP 152/92; PULSE 94; O2SAT 95
== END 2020-08-21 21:51 | disposition home or self-care (01) ==
PROVIDERS: Emergency Provider Emergency Medicine
DX: R53.83 Other fatigue (principal); K59.00 Constipation, unspecified; R07.89 Other chest pain; R07.81 Pleurodynia
CPT/HCPCS: 36415; 71101; 74177; 80053; 83690; 85025; 85610; 85730; 96360; 99284; Q9967

== ENCOUNTER → 2020-08-27 15:03 | Outpatient (CLI) | payer MEDICARE, SELFPAY ==
[2020-08-27 15:46] LABS: Appearance Urine UA CLEAR; Bilirubin Urine UA NEGATIVE (NEGATIVE); Glucose Urine UA TRACE g/dL (Negative); Ketones Urine UA NEGATIVE (NEGATIVE); Leukocyte Esterase Urine UA TRACE (NEGATIVE); Nitrite Urine UA POSITIVE (Negative); Occult Blood Urine UA TRACE-LYSED (Negative); Protein Urine UA TRACE (Negative); Urobilinogen Urine UA 0.2 E.U./dL (0.2)
[2020-08-27 15:47] LABS: Color Urine UA ORANGE; pH Urine UA 5.5 (4.5-8.0)
[2020-08-27 15:48] LABS: Bacteria Urine None Seen
[2020-08-27 15:50] LABS: RBC Urine 1-5/HPF (0-5/HPF); Squamous Epithelial Cell Urine 5-10 /HPF (0-5/HPF); WBC Urine 1-5/HPF (0-5/HPF)
[2020-08-27 15:51] LABS: Culture Indicated Urine Cult Not Indicated
== END ==
PROVIDERS: Referring Provider Specialist; Visit Provider Specialist
DX: N39.0 Urinary tract infection, site not specified (principal)
CPT/HCPCS: 81003; 81015